=== PATIENT | female | born 1990 | race Two or more races ===

== ENCOUNTER 2022-09-01 04:31 | Inpatient (IN) | payer OTHER ==
[2022-09-01 05:51] VITALS: BMI 35.2
[2022-09-01 06:14] LABS: INR 0.91 (0.83-1.09); PROTHROMBIN TIME (PATIENT) 10.5 SEC (9.7-13.0)
[2022-09-01 06:15] LABS: BASO % 0.2 % (0-2.0); EOS % 0.4 % (0-4.5); HEMATOCRIT 37.4 % (32.4-45.2); LYMPH % 22.7 % (8-40); MCH 26.4 pg (25.7-33.7); MEAN CELL VOLUME 82.5 fl (80-96); MEAN PLT VOLUME 8.6 fl (7.5-11.1); MONO % 4.6 % (3.8-10.2); NEUT % 72.1 % (42.8-82.8); PLATELET COUNT 283 10^3/uL (134-434); RBC 4.53 M/mm3 (3.60-5.2); RDW 15.7 % (11.6-15.6); RETICULOCYTES 2.03 % (0.5-1.5); WHITE BLOOD COUNT 12.6 K/mm3 (4.0-10.0)
[2022-09-01 06:31] LABS: ALBUMIN 2.4 g/dl (3.4-5.0); BLOOD UREA NITROGEN 9.4 mg/dL (7-18); CALCIUM 8.6 mg/dL (8.5-10.1)
[2022-09-01 06:34] LABS: CREATININE 0.7 mg/dL (0.55-1.3); URIC ACID 5.5 mg/dL (2.6-7.2)
[2022-09-01] MEDS ORDERED: OXYTOCIN 10 UNITS/ML VIAL IM ONE (06:34)
[2022-09-01 06:36] LABS: BILIRUBIN,TOTAL 0.3 mg/dL (0.2-1); TOT PROT 6.4 g/dl (6.4-8.2)
[2022-09-01] MEDS ORDERED: BENZOCAINE 28 GM HEMORRHOIDAL OINTMENT TP PRN (06:36)
[2022-09-01] MEDS ORDERED: METHYLERGONOVINE MALEATE 0.2 MG/1 ML AMP IM PRN (06:36)
[2022-09-01] MEDS ORDERED: BENZOCAINE 20% 57 GM BOTTLE TP PRN (06:36)
[2022-09-01] MEDS ORDERED: oxyCODONE HCL 5 MG TABLET PO PRN (06:36)
[2022-09-01] MEDS ORDERED: ACETAMINOPHEN 325 MG TABLET (FP) PO PRN (06:36)
[2022-09-01] MEDS ORDERED: WITCH HAZEL 50% (TUCKS) 40 PAD/JAR PAD TP PRN (06:36)
[2022-09-01] MEDS ORDERED: BISACODYL 10 MG SUPP.RECT RC PRN (06:36)
[2022-09-01 06:40] LABS: CORD BASE EXCESS -2.1 mmol/L (0-2); CORD HCO3 26.6 mmHg (20-29); CORD PCO2 61.1 mmHg (30-78); CORD pH 7.257 (7.14-7.44)
[2022-09-01 06:43] LABS: CORD BASE EXCESS -2.9 mmol/L (0-2); CORD HCO3 24.1 mmHg (20-29); CORD PCO2 49.5 mmHg (30-78); CORD pH 7.305 (7.14-7.44)
[2022-09-01] MEDS ORDERED: OXYTOCIN 20 UNITS in 0.9% NS 20 UNIT/1,000 ML INFUS.BAG IV SCH (06:45)
[2022-09-01] MEDS: IBUPROFEN 600 MG TABLET (FP) PO PRN ×2 (08:33→22:57)
[2022-09-02] MEDS: IBUPROFEN 600 MG TABLET (FP) PO PRN ×2 (02:25→19:18)
[2022-09-02 07:53] LABS: BASO % 0.5 % (0-2.0); HEMATOCRIT 30.9 % (32.4-45.2); HEMOGLOBIN 10.3 GM/dL (10.7-15.3); LYMPH % 36.4 % (8-40); MCH 27.5 pg (25.7-33.7); MCHC 33.2 g/dl (32.0-36.0); MEAN CELL VOLUME 82.7 fl (80-96); MEAN PLT VOLUME 8.4 fl (7.5-11.1); MONO % 5.9 % (3.8-10.2); NEUT % 56.2 % (42.8-82.8); PLATELET COUNT 246 10^3/uL (134-434); RBC 3.74 M/mm3 (3.60-5.2); RDW 16.1 % (11.6-15.6); WHITE BLOOD COUNT 11.2 K/mm3 (4.0-10.0)
[2022-09-02] MEDS ORDERED: SENNOSIDES/DOCUSATE COMBO (SENNA PLUS) TABLET (UD) PO PRN (22:00)
[2022-09-03 08:42] VITALS: BP 113/69; PULSE 72; RESP 20; TEMP 98.3
== END 2022-09-03 12:25 | disposition home or self-care (01) | DRG 560 ==
LOC: JLDR 04:31 → J3W 07:45
PROVIDERS: ADMIT Internal Medicine; ATTEND Internal Medicine
PROC: 10E0XZZ Delivery of Products of Conception, External Approach (ICD-10-PCS; principal; 2022-09-01)
DX: O70.0 First degree perineal laceration during delivery (principal); Z3A.39 39 weeks gestation of pregnancy; Z37.0 Single live birth
CPT/HCPCS: 36415; 36600; 59409; 80053; 82803; 83010; 84550; 85025; 85045; 85610; 85730; 86780; 86850; 86900; 86901; C9803-CS; U0003; U0005